=== PATIENT | female | born 1935 | race African-American/Black ===

== ENCOUNTER 2017-05-12 21:06 | Inpatient (IN) | payer MEDICARE, MEDICAID ==
[~2017-05-12] VITALS: Ht 160 cm; Wt 52.2 kg
[~2017-05-12 21:06] MED LIST: AMLO2.5T45 PO; ASPI-1159 PO; ATOR40TA70 PO; DONE5TAB33 PO; FAMO20TA8 PO; HYDR25TA PO; MEMA10TA2 PO; PANT40TA4 PO
[2017-05-12] MEDS ORDERED: FAMOTIDINE 20MG/2ML VIAL IV STA (21:52)
[2017-05-12] MEDS ORDERED: SODIUM CHLORIDE 0.9% 1,000 ML IV ONE (21:52)
[2017-05-12 22:28] LABS: CHLORIDE 101 mEq/L (98-107)
[2017-05-12 22:29] LABS: INR 1.1; PROTHROMBIN TIME 11.1 sec (9.4-11.6)
[2017-05-12 22:32] LABS: BASOPHILS % 0.4 % (0.0-2.0); HEMATOCRIT. 35.4 % (36.0-48.0); HEMOGLOBIN. 11.1 g/dL (12.0-16.0); LYMPHOCYTES % 9.6 % (20.0-50.0); MEAN CORPUSCULAR HEMOGLOBIN 25.4 pg (28.0-32.0); MEAN PLATELET VOLUME 9.7 fl (7.4-10.4); MONOCYTES % 5.5 % (2.0-8.0); NEUTROPHILS % 84.5 % (40.0-76.0); PLATELET 427 x1000/uL (130-400); RED BLOOD CELL COUNT 4.37 mill/uL (4.2-5.4); RED CELL DISTRIBUTION WIDTH 14.4 % (11.6-14.6)
[2017-05-12 22:38] LABS: CARBON DIOXIDE 29 mEq/L (21-32); TROPONIN I 0.08 ng/mL (0.00-0.04)
[2017-05-13] VITALS (8 sets, daily range): BP systolic 90–125; BP diastolic 53–66
[2017-05-13] MEDS ORDERED: PIPERACILLIN/TAZ 3.375G PREMIX 50 ML IV NR
[2017-05-13 00:57] LABS: CLARITY URINE CLOUDY (CLEAR); COLOR URINE DARK YELLOW (YELLOW); GLUCOSE URINE NEGATIVE (NEGATIVE); KETONES URINE NEGATIVE (NEGATIVE); LEUKOCYTE ESTERASE URINE 1+ (NEGATIVE); NITRITE URINE NEGATIVE (NEGATIVE); OCCULT BLOOD URINE 3+ (NEGATIVE); PROTEIN URINE 1+ (NEGATIVE)
[2017-05-13] MEDS ORDERED: IPRATROPIUM/ALBUTEROL 0.5-3(2.5)MG/3ML NEB INH PRN (01:00)
[2017-05-13] MEDS ORDERED: DIPHENHYDRAMINE 50MG/ML VIAL IV PRN (01:00)
[2017-05-13] MEDS ORDERED: MAGNESIUM/ALUMINUM HYDROXIDE/SIMETHICONE 30ML UDC PO PRN (01:00)
[2017-05-13] MEDS ORDERED: GUAIFENESIN 200MG/10ML SUGAR FREE UDC PO PRN (01:00)
[2017-05-13] MEDS ORDERED: LORAZEPAM 2MG/ML CPJ IV PRN (01:00)
[2017-05-13] MEDS ORDERED: NA PHOS,M-B/NA PHOS,DI-BA ENEMA 118ML PR PRN (01:00)
[2017-05-13] MEDS ORDERED: DOCUSATE SODIUM 100MG CAPSULE PO PRN (01:00)
[2017-05-13] MEDS ORDERED: ACETAMINOPHEN 325MG TABLET PO PRN (01:00)
[2017-05-13] MEDS ORDERED: HYDROMORPHONE HCL/PF 2MG/ML CPJ IV PRN (01:00)
[2017-05-13] MEDS ORDERED: HYDROCODONE/ACETAMINOPHEN 5/325MG TABLET PO PRN (01:00)
[2017-05-13] MEDS ORDERED: CLONIDINE 0.1MG TABLET PO PRN (01:00)
[2017-05-13] MEDS: SODIUM CHLORIDE 0.45% 1,000 ML IV SCH ×2 (03:17→21:02)
[2017-05-13] MEDS ORDERED: LEVOFLOXACIN 500MG PREMIX 100 ML IV NR (05:00)
[2017-05-13] MEDS: METRONIDAZOLE 500 MG PREMIX 100 ML IV SCH ×3 (05:16→21:42)
[2017-05-13] MEDS: ENOXAPARIN 40MG/0.4ML SYR SUBCUT SCH (08:38)
[2017-05-13] MEDS ORDERED: INFLUENZA VIRUS VACCINE 0.5ML SYR IM ONE (10:00)
[2017-05-13 10:15] LABS: CARBON DIOXIDE 28 mEq/L (21-32); CHLORIDE 105 mEq/L (98-107)
[2017-05-13] MEDS ORDERED: PRED5TAB48 PO (18:50)
[2017-05-13] MEDS: ONDANSETRON HCL 4MG/2ML VIAL IV PRN (21:03)
[2017-05-14] VITALS: BP 116/63
[2017-05-14 04:00] VITALS: BP 101/60
[2017-05-14] MEDS ORDERED: LEVOFLOXACIN 250MG PREMIX 50 ML IV SCH (05:00)
[2017-05-14] MEDS: METRONIDAZOLE 500 MG PREMIX 100 ML IV SCH ×2 (06:17→13:27)
[2017-05-14 07:33] VITALS: BP 98/50
[2017-05-14 07:37] LABS: BASOPHILS % 0.4 % (0.0-2.0); EOSINOPHILS % 0.3 % (0.0-5.0); HEMOGLOBIN. 10.3 g/dL (12.0-16.0); LYMPHOCYTES % 12.9 % (20.0-50.0); MEAN CORPUSCULAR HEMOGLOBIN 25.8 pg (28.0-32.0); MEAN CORPUSCULAR VOLUME 82.2 fL (81.0-99.0); MEAN PLATELET VOLUME 9.8 fl (7.4-10.4); MONOCYTES % 8.2 % (2.0-8.0); NEUTROPHILS % 78.2 % (40.0-76.0); PLATELET 329 x1000/uL (130-400); RED BLOOD CELL COUNT 4.01 mill/uL (4.2-5.4); RED CELL DISTRIBUTION WIDTH 13.8 % (11.6-14.6)
[2017-05-14 07:58] LABS: CARBON DIOXIDE 29 mEq/L (21-32); CHLORIDE 106 mEq/L (98-107); HDL CHOLESTEROL 44 mg/dL (40-59); LDL CHOLESTEROL 33 mg/dL (5-100)
[2017-05-14] MEDS: ONDANSETRON HCL 4MG/2ML VIAL IV PRN (09:37)
[2017-05-14] MEDS: ENOXAPARIN 40MG/0.4ML SYR SUBCUT SCH (09:38)
[2017-05-14 11:37] VITALS: BP 99/53
[2017-05-14] MEDS: SODIUM CHLORIDE 0.45% 1,000 ML IV SCH (12:50)
[2017-05-14 15:09] VITALS: BP 99/53
[2017-05-14 15:47] VITALS: BP 96/56
== END 2017-05-14 19:10 | disposition home or self-care (01) | DRG 392 ==
LOC: ER 21:55 → 8WST 05-13 00:06 → EDBEDREQTM 05-13 00:06 → EDBEDREQ 05-13 00:06 → ENRESERV 05-13 01:11
PROVIDERS: ADMIT Internal Medicine; ATTEND Internal Medicine
DX: K52.9 Noninfective gastroenteritis and colitis, unspecified (principal); R65.10 Systemic inflammatory response syndrome (SIRS) of non-infectious origin without acute organ dysfunction; E86.0 Dehydration; F03.90 Unspecified dementia, unspecified severity, without behavioral disturbance, psychotic disturbance, mood disturbance, and anxiety; I10 Essential (primary) hypertension; J45.909 Unspecified asthma, uncomplicated; Z79.899 Other long term (current) drug therapy; Z79.82 Long term (current) use of aspirin; I25.2 Old myocardial infarction
CPT/HCPCS: 36415; 71010; 74176; 80048; 80053; 80061; 81001; 83605; 83690; 84484; 85025; 85610; 93005; 96365; 96375; 99285; J1650; J1956; J2405; J2543; J3490; J7030